=== PATIENT | male | born 1990 | race Two or more races ===

== ENCOUNTER 2016-06-07 15:08 | Emergency (ER) | payer MEDICAID ==
[~2016-06-07] VITALS: Ht 182.9 cm; Wt 81.6 kg
[2016-06-07 18:20] VITALS: BP 112/66
[2016-06-07] MEDS ORDERED: SODIUM CHLORIDE 0.9% 1,000 ML IV ONE (19:10)
[2016-06-07] MEDS ORDERED: NALOXONE HCL 0.4 MG/ML VIAL IV ONE (19:15)
== END 2016-06-07 20:50 | disposition home or self-care (01) ==
LOC: ER 15:18
DX: R53.1 Weakness (principal); T42.4X5A Adverse effect of benzodiazepines, initial encounter; F17.210 Nicotine dependence, cigarettes, uncomplicated; F12.10 Cannabis abuse, uncomplicated; R51 Headache
CPT/HCPCS: 70450; 96361; 96374; 99284; J2310; J7030